=== PATIENT | female | born 1965 | race Caucasian/White ===

== ENCOUNTER 2019-08-04 09:45 | Emergency (ER) | payer SELFPAY ==
[~2019-08-04] VITALS: Ht 167.6 cm; Wt 78.2 kg
[~2019-08-04 09:45] MED LIST: DICL100G37 TOP; HYDR-4011 PO; NAPR-985 PO
[2019-08-04 10:08] VITALS: Ht 167.6 cm; Wt 78.2 kg
== END 2019-08-04 11:10 | disposition home or self-care (01) ==
LOC: FTE 09:45
DX: M25.562 Pain in left knee (principal)
CPT/HCPCS: 99283